=== PATIENT | female | born 1965 | race Native Hawaiian/Other Pacific Islander ===

== ENCOUNTER 2021-03-18 23:39 | Observation (INO) | payer OTHER ==
[~2021-03-18] VITALS: Ht 162.6 cm; Wt 82.2 kg
[2021-03-18 23:50] VITALS: BP 169/106; TEMP 98.8
[2021-03-19] VITALS (21 sets, daily range): BP systolic 54–176; BP diastolic 21–126; TEMP 97.6–98.36; Ht 162.6 cm; Wt 82.2 kg
[2021-03-19 00:54] LABS: POTASSIUM 4.5 mmol/L (3.6-5.2)
[2021-03-19 01:06] LABS: PLATELET COUNT 332 K/uL (152-353)
[2021-03-19] MEDS ORDERED: LEVOCETIRIZINE D5 MG PO (02:00)
[2021-03-19] MEDS ORDERED: DICYCLOMINE HYD10 MG PO ×2 (02:01→05:41)
[2021-03-19] MEDS ORDERED: PANTOPRAZOLE 40MG TA PO ×2 (02:02→05:44)
[2021-03-19] MEDS ORDERED: TRINTELLIX20 MG PO ×2 (02:02→05:43)
[2021-03-19] MEDS ORDERED: ASPIR-8181 MG PO (05:15)
[2021-03-19] MEDS ORDERED: CARV6.25 PO (05:19)
[2021-03-19] MEDS ORDERED: ALLERGY RELIEF 25 MG PO (05:21)
[2021-03-19] MEDS ORDERED: ALBU90AE13 INH (05:29)
[2021-03-19] MEDS ORDERED: AMBIEN5 MG PO (05:39)
[2021-03-19] MEDS ORDERED: FURO20TA67 PO (05:39)
[2021-03-19] MEDS ORDERED: TIZANIDINE HYDRO4 MG PO (05:40)
[2021-03-19 23:26] LABS: PLATELET COUNT 273 K/uL (152-353)
[2021-03-19 23:37] LABS: POTASSIUM 3.9 mmol/L (3.6-5.2)
[2021-03-20] VITALS (8 sets, daily range): BP systolic 105–114; BP diastolic 55–71; TEMP 98
== END 2021-03-20 04:52 | disposition short-term general hospital (02) ==
LOC: ED 23:39 → MED/SURG 03-19 03:40
PROVIDERS: ADMIT Family Medicine; ATTEND Internal Medicine Endocrinology, Diabetes & Metabolism
DX: I11.0 Hypertensive heart disease with heart failure (principal); I50.9 Heart failure, unspecified; R11.2 Nausea with vomiting, unspecified; I44.7 Left bundle-branch block, unspecified; I46.9 Cardiac arrest, cause unspecified; I47.2 Ventricular tachycardia; R06.02 Shortness of breath
CPT/HCPCS: 36415; 36600; 51702; 80053; 80074; 81000; 82150; 82550; 82805; 83690; 83735; 83880; 84484; 85027; 87635; 92950; 93005; 94760; 96360; 96365; 96372; 96374; 96375; 96376; 99220; 99284; G0378; J0282; J0360; J1650; J1940; J2405; J3490; U0003